=== PATIENT | female | born 1980 | race Caucasian/White ===

== ENCOUNTER → 2023-07-16 09:12 | Outpatient (REF) | payer OTHER, SELFPAY | LOC: HWRCS 09:12 | PROVIDERS: ATTENDING PHYSICIAN Nurse Practitioner Adult Health | DX: R07.9 Chest pain, unspecified (principal) | CPT/HCPCS: 93306 ==

== ENCOUNTER 2023-11-01 19:21 | Emergency (ER) | payer OTHER, SELFPAY ==
[2023-11-01 19:23] VITALS: BP 120/90
--- NOTE | 2023-11-01 19:57 | ED.SKININJ ---
HPI-Injury
General
Chief Complaint: Skin Problem
Source: patient
Exam Limitations: none
Time Seen by Provider: 11/01/23 19:34
Nursing documentation reviewed up to this point in time: agreed with
History of Present Illness-Injury
Is this injury a work related problem?: No
Is pt an associate of [facility]/[place]?: No
Initial Injury comments:
Patient to ED for eval of skin rash to her left medial knee. States she removed a tiny tick on Wednesday. Now with erythema and swelling. Brought self to ED for eval.
Past History
Past History
ED Past Medical History: None
ED Past Surgical History: None
Review of Systems
Review of Systems
Allergies reviewed?: Yes
All Other Systems: ROS reviewed and negative except as documented in HPI and ROS
Constitutional: Reports no symptoms
Musculoskeletal: Reports no symptoms
Skin: Reports other (erythema, swelling left medial knee)
Neurological: Reports no symptoms
Psychiatric: Reports no symptoms
Skin Exam
Bite
Left Medial Knee:
Type: insect/spider
Tick bite: Tick no longer attached
Description of tick: small tick
Surrounding area around bite has: area of erythema/swelling
Distal skin color and temperature: normal-warm & good color
Normal distal neurovascular exam: Yes
Phy Exam
General Physical Exam
General Presentation: well appearing and no apparent distress
General age: appears stated age
General Skin: warm and dry
General Habitus: normal
General Mental: alert
Musculoskeletal Exam
Musculoskeletal Exam: full ROM and neuro vasc intact
Course
Orders/Labs/Results
Orders:
Orders
11/01/23 19:54
Doxycycline [Vibramycin] 100 mg PO NOW STA
Vital Signs
Initial and Last Documented VS:
Initial Vital Signs
Temp Pulse Resp BP Pulse Ox
98.9 F 89 18 120/90 98
11/01/23 19:23 11/01/23 19:23 11/01/23 19:23 11/01/23 19:23 11/01/23 19:23
Last Documented Vital Signs
Temp Pulse Resp BP Pulse Ox
98.9 F 89 18 120/90 98
11/01/23 19:23 11/01/23 19:23 11/01/23 19:23 11/01/23 19:23 11/01/23 19:23
*Critical Care Note
Total Time (30-74mins, 75-104mins- exclusive of procedures): Not Applicable
ED Attending Note
-
Portions of this chart may have been created with voice recognition software.� Occasional wrong word or��sound alike� substitutions may have occurred due to the inherent limitations of voice recognition software.
Discharge Plan
Departure
Patient Disposition: Home (Routine Discharge)
Date of Disposition: 11/01/23
Time of Disposition: 19:55
Patient with high blood pressure during this ER visit?: No
Condition: Good
Covid-19: Not Applicable
Discharge Problem:
Tick bite
Instructions: Insect bites and stings, Lyme Disease (DC)
Prescriptions:
New
doxycycline hyclate 100 mg capsule
100 mg PO BID Qty: 41 0RF
Activity Restrictions/Additional Instructions:
Follow up with your family doctor.
Interventions
Interventions:
*Risk Screen - Suicide Last Done: 11/01/23 19:26
*General Assessment Last Done: 11/01/23 19:26
*Neglect/Abuse Screening Last Done: 11/01/23 19:26
*Nursing Disposition Last Done: 11/01/23 20:06
ED-Skin Assessment Last Done: 11/01/23 19:57
Discharge Date and Time
Discharge Date/Time: 11/01/23 20:07
Print Language: ISRAELI
[2023-11-01] MEDS: VIBRAMYCIN 100 MG PO (20:03)
== END 2023-11-01 20:07 | disposition home or self-care (01) ==
LOC: EMR 19:21
PROVIDERS: EMERGENCY PHYSICIAN Emergency Medicine; FAMILY PHYSICIAN Nurse Practitioner Adult Health
DX: R21 Rash and other nonspecific skin eruption (principal); M25.462 Effusion, left knee; L29.9 Pruritus, unspecified; W57.XXXA Bitten or stung by nonvenomous insect and other nonvenomous arthropods, initial encounter
CPT/HCPCS: 99283

== ENCOUNTER → 2023-11-18 10:50 | Outpatient (REF) | payer OTHER, SELFPAY | LOC: WDC 10:50 | PROVIDERS: ATTENDING PHYSICIAN Family Medicine | DX: Z12.31 Encounter for screening mammogram for malignant neoplasm of breast (principal) | CPT/HCPCS: 77063; 77067 ==

== ENCOUNTER → 2024-11-23 11:14 | Outpatient (REF) | payer OTHER, SELFPAY | LOC: WDC 11:14 | PROVIDERS: ATTENDING PHYSICIAN Family Medicine | DX: Z12.31 Encounter for screening mammogram for malignant neoplasm of breast (principal) | CPT/HCPCS: 77063; 77067 ==